=== PATIENT | male | born 1980 | race Caucasian/White ===

== ENCOUNTER → 2016-06-19 | Outpatient (CLI) | payer OTHER ==
--- NOTE | 2016-06-19 16:19 | REP ---
MAXILLOFACIAL CT WITHOUT CONTRAST: HISTORY: Chronic maxillary sinusitis. The right fontal sinus is hypoplastic. Diffuse sinus mucosal thickening is present. There is complete opacification of the right frontal sinus. Moderate mucosal thickening is present in the ethmoid and left maxillary sinuses. Mild mucosal thickening is present in the right maxillary sinus. Minimal mucosal thickening is present in the sphenoid sinuses. Mucosal thickening involves the ostiomeatal units. The middle and inferior nasal turbinates are partially paradoxical. There is mild deviation of the nasal septum to the left. A spur is present arising from the right side of the nasal septum. The cribriform plate, medial malik of the orbits and optic canals are intact. The carotid canals form a segment of the posterolateral malik of the sphenoid sinus. Soft tissue densities are present in the nasal passage consistent with polyps. The uncinate processes, middle and inferior nasal turbinates are incompletely seen. This is likely due to demineralization secondary to chronic sinusitis. IMPRESSION: 1. Sinus mucosal thickening as described above. 2. There are soft tissue densities in the nasal passage consistent with polyps. Signed by Jean Carlos Maxwell MD 06/19/2016 04:39 P
== END ==
LOC: M RAD 15:20
PROVIDERS: ATTEND Otolaryngology
DX: J32.0 Chronic maxillary sinusitis (principal)

== ENCOUNTER 2016-10-13 08:19 | Day surgery (SDC) | payer OTHER ==
[~2016-10-13] VITALS: Ht 175.3 cm; Wt 68.0 kg
[~2016-10-13 08:19] MED LIST: BACL10TA2 PO; NAPR500T PO; PRED10TA2 PO
[2016-10-13] MEDS ORDERED: LR 1,000 ML IV ONE (08:30)
[2016-10-13] MEDS ORDERED: dexameTHASONE 4 MG/ML 1ML VIAL (J1100) IV ONE (08:30)
[2016-10-13] MEDS ORDERED: METHYLENE BLUE 0.5% (5MG/ML) 10 ML AMP (PROVAYBLUE)(Q9968 PER 1MG) As Ordered ONE (09:49)
[2016-10-13] MEDS ORDERED: EPINEPHrine 1MG/ML INJ 30ML MD-VIAL As Ordered ONE (09:50)
[2016-10-13] MEDS ORDERED: SODIUM CHLORIDE 0.9% NASAL GEL 15MG (AYR) As Ordered ONE (09:50)
[2016-10-13] MEDS ORDERED: LIDOCAINE W/EPINEPHRINE 1% 20ML VIAL As Ordered ONE (09:50)
[2016-10-13] MEDS ORDERED: fentaNYL 100 MCG/2 ML INJECTION (J3010) As Ordered ONE ×4 (09:54→12:33)
[2016-10-13] MEDS ORDERED: MIDAZOLAM INJ 2 MG/2 ML VIAL (J2250) As Ordered ONE (09:54)
[2016-10-13] MEDS ORDERED: ONDANSETRON 4MG/2ML VIAL (J2405) As Ordered ONE (12:34)
[2016-10-13] MEDS ORDERED: GLYCOPYRROLATE INJ 0.2 MG/ML 2 ML VIAL As Ordered ONE (12:39)
[2016-10-13] MEDS ORDERED: NEOSTIGMINE 1MG/ML 5 ML SYRINGE (J2710) As Ordered ONE (12:39)
[2016-10-13] MEDS ORDERED: PERCOCET 5MG/325MG TAB PO PRN (13:15)
[2016-10-13] MEDS ORDERED: ONDANSETRON 4MG/2ML VIAL (J2405) IV PRN (13:15)
[2016-10-13] MEDS ORDERED: LR 1,000 ML IV SCH (13:15)
[2016-10-13] MEDS ORDERED: fentaNYL 100 MCG/2 ML INJECTION (J3010) IV PRN (13:15)
[2016-10-13 14:43] VITALS: BP 138/84
--- NOTE | 2016-10-29 14:01 | RO ---
DATE OF PROCEDURE: 10/13/2016 PREOPERATIVE DIAGNOSES: 1. Chronic maxillary sinusitis. 2. Chronic ethmoid sinusitis. 3. Chronic frontal sinusitis. 4. Chronic sphenoid sinusitis. 5. Nasal polyposis. POSTOPERATIVE DIAGNOSES: PROCEDURE PERFORMED: 1. Bilateral endoscopic maxillary antrostomy with tissue removal. 2. Bilateral endoscopic anterior and posterior ethmoidectomy. 3. Bilateral endoscopic sphenoidotomy 4. Bilateral frontal sinusotomy using balloon sinuplasty, 5. Stereotactic surgery using the Brain lab protocol 6. Bilateral implantation of the Propel stents. SURGEON: Dr. Anmol Barcenas REGULATORY AFFAIRS COORDINATOR: ANESTHESIA: General. CLINICAL PREAMBLE: This 36-year-old man presented to the office with chronic nasal congestion. He had endoscopic sinus surgery done in [address] Ribeiro. Physical examination revealed bilateral nasal polyposis. CT scan of the sinuses confirmed the presence of redman sinusitis with bilateral nasal polyposis. Management options of surgery as above had been discussed. He understood and consented to the procedure. OR NARRATION: The patient was identified in preoperative holding and brought to the operating room in satisfactory condition. In supine position on the operating room table, the patient received general anesthesia followed by oral endotracheal intubation without incident. The patient was prepped and draped in the usual fashion for the procedure. Both sides were protected using the lubricant and the Tegaderm. The head band for the brain lab system was successfully attached to the forehead. Good landmark was obtained to correspond between the CD images and the actual patient surface anatomy. The patient was prepped and draped in the usual fashion for the procedure. Cottonoid pledgets soaked in 1:1000 epinephrine were used to pack both sides of the nasal cavity. After a waiting period, the pledgets were removed. Using the 0 degree nasoendoscope, inspection of the nasal cavity revealed bilateral nasal polyposis. The polyps were infiltrated with 1% lidocaine with 1:100,000 epinephrine. The nasal polyps were then debrided. The polypoid tissue was noted around the right maxillary antrum. Debridement of the polypoid tissue from the right maxillary antrum was performed. The diseased anterior ethmoid air cells with polypoid degeneration was also resected. The diseased posterior ethmoid air cells were also identified and resected as well. The right sphenoid rostrum was identified. Right sphenoidotomy along with removal of the polypoid tissue was carried out. The right frontal sinusotomy was then successfully performed using the Acclarent balloon system. Upon confirmation of positive illumination of the right frontal sinus, the balloon was inflated to 12 atmospheric pressure for 5 seconds. The right frontal sinus was then irrigated. The right osteomeatal complex was then packed using pledgets soaked in 1:1,000 epinephrine. Attention was turned to the left side of the nasal cavity. Nasal polypectomy was performed using the microdebrider. The left maxillary antrum with polypoid tissue was then debrided clear of the polyps. The diseased anterior ethmoid air cells were then taken down. The posterior ethmoid air cells with polypoid degeneration were also resected as well. Left frontal sinusotomy was performed using the Acclarent balloon sinuplasty. The balloon was inflated to 12 atmospheric pressure for 5 seconds after the confirmation of the placement of the catheter with positive illumination of the left frontal sinus cavity. The left sphenoid rostrum was identified and sphenoidotomy was also performed. The polypoid tissue was resected from the left maxillary sinus cavity as well. The pledgets soaked in 1:1,000 epinephrine was used to pack the left osteomeatal complex. Complete hemostasis was observed upon removal of the nasal packing. The Propel stent was placed into the left and right osteomeatal complexes. At the end of the procedure, the sponge and instrument counts were correct. No complications were encountered. Estimated blood loss was approximately 50 mL. General anesthesia was reversed and the patient was extubated and brought to the recovery room in stable condition. In the recovery area, the patient exhibited full and symmetrical extraocular motion with no evidence of periorbital ecchymosis. BARAKD
== END 2016-10-13 15:10 | disposition home or self-care (01) ==
LOC: M SDC 08:19
PROVIDERS: ATTEND Otolaryngology
DX: J32.0 Chronic maxillary sinusitis (principal); J32.2 Chronic ethmoidal sinusitis; J32.1 Chronic frontal sinusitis; J32.3 Chronic sphenoidal sinusitis; J33.9 Nasal polyp, unspecified; J45.909 Unspecified asthma, uncomplicated; M51.36 Other intervertebral disc degeneration, lumbar region; R06.83 Snoring; J32.9 Chronic sinusitis, unspecified; Z79.899 Other long term (current) drug therapy; Z72.0 Tobacco use
CPT/HCPCS: 31256; 31267; 31287; 31296; 88305; 96374; 96375; C1887; C2625; J1100; J2250; J2405; J2710; J3010; Q9968